=== PATIENT | male | born 1970 | race Caucasian/White ===

== ENCOUNTER 2019-07-12 03:44 | Emergency (ER) | payer OTHER ==
[~2019-07-12] VITALS: Ht 177.8 cm; Wt 89.5 kg
[2019-07-12] MEDS ORDERED: DIPH,PERTUSS(ACELL),TET VAC/PF 0.5 ML IM-VACC ONE ×2 (04:00→04:11)
[2019-07-12] MEDS ORDERED: PLEASE ENTER ALLERGIES MC SCH (04:30)
[2019-07-12] MEDS ORDERED: LIDOCAINE-MPF 1%, 5ML INFIL ONE (05:00)
[2019-07-12] MEDS ORDERED: LIDOCAINE-MPF 1%, 5ML ONE ×2 (05:21→05:40)
[2019-07-12] MEDS ORDERED: CEFAZOLIN PMX 1GM/50ML 50 ML ONE (05:21)
[2019-07-12] MEDS ORDERED: CEFAZOLIN PMX 1GM/50ML 50 ML IV ONE (05:30)
[2019-07-12] MEDS ORDERED: NEOSPORIN OINT. PKT 1 PACKET ONE (05:57)
[2019-07-12 06:37] VITALS: BP 134/79
== END 2019-07-12 06:40 | disposition home or self-care (01) ==
LOC: ED 06:26
DX: S91.341A Puncture wound with foreign body, right foot, initial encounter (principal); X58.XXXA Exposure to other specified factors, initial encounter; Y93.89 Activity, other specified; Y92.009 Unspecified place in unspecified non-institutional (private) residence as the place of occurrence of the external cause; Y99.8 Other external cause status
CPT/HCPCS: 10120; 73630; 90471; 90715; 96365; 99285; J0690